=== PATIENT | male | born 1990 | race Caucasian/White ===

== ENCOUNTER 2016-11-20 11:26 | Emergency (ER) | payer BC ==
[2016-11-20] MEDS ORDERED: LORazepam 2 MG/ML INJ IVP ONE (11:32)
[2016-11-20] MEDS ORDERED: LORazepam 2 MG/ML INJ ONE (11:32)
--- NOTE | 2016-11-20 11:34 | EDPHY ---
H & P Time Seen by Provider: 11/20/16 11:32 HPI/ROS: CHIEF COMPLAINT: Possible right shoulder dislocation HISTORY OF PRESENT ILLNESS: 26-year-old male with prior history of right shoulder dislocation x4 arrives via ambulance after he was was bench pressing heavier than usual weight and felt his shoulder dislocate. No direct trauma or fall. PHYSICAL EXAM (Prior to examination, patient consented to physical exam, hands were washed and my usual and customary physical exam procedures followed) 1) GENERAL: Well-developed, well-nourished, alert and oriented. Appears to be in no acute distress. 2) HEAD: Normocephalic 3) HEENT: sclera anicteric 4) LUNGS: Breathing comfortably. 5) SKIN: intact 6) MUSCULOSKELETAL: lateral shoulder step-off with anterior fullness 7) NEUROLOGIC: bilateral deltoid sensation intact. DIFFERENTIAL DIAGNOSIS: in no particular include but not limited to fracture, dislocation, subluxation Constitutional: Initial Vital Signs Temperature (C) 36.9 C 11/20/16 11:35 Heart Rate 79 11/20/16 11:35 Respiratory Rate 18 11/20/16 11:35 Blood Pressure 126/86 H 11/20/16 11:35 O2 Sat (%) 98 11/20/16 11:35 O2 Delivery Mode Room Air Allergies/Adverse Reactions: No Known Allergies Allergy (Unverified 11/20/16 11:37) Home Medications: Medication Instructions Recorded Hydrocodone/APAP 5/325 [[place] 1 tab PO Q6 PRN #5 tab 11/20/16 5/325 (RX)] MDM/Departure - MDM Diagnostics: Pre reduction Xray of the right shoulder interpreted by myself: Dislocation Post reduction xray of the right shoulder interpreted by myself: normal anatomic alignment Procedures: Procedure: Dislocation reduction. . The dislocation of the right shoulder was reduced using modified Santizo technique without complications. Post reduction the patient's neurovascular exam is normal. Post reduction x-ray demonstrates reduction of the joint to the anatomic position. The procedure was performed by myself. Medications Given: Discontinued Medications Lorazepam (Ativan Injection) 1 mg IVP EDNOW ONE Stop: 11/20/16 11:33 Last Admin: 11/20/16 11:36 Dose: 1 mg - Depart Disposition: Home, Routine, Self-Care Clinical Impression: Recurrent dislocation, right shoulder Condition: Good Instructions: Shoulder Dislocation (ED) Additional Instructions: Return to the ER immediately if you experience discoloration, have worsening pain, numbness, tingling, or any other symptoms that concern you. If you received x-rays in the emergency department today, be advised, that ligamentous , tendon, muscular, and other non-bony injury cannot be fully ruled out. Try to keep your affected extremity elevated above the level of your chest, and keep cold packs on the affected area, for the next 48 hours. Prescriptions: Hydrocodone/APAP 5/325 [[place] 5/325 (RX)] 1 tab PO Q6 PRN #5 tab PRN Reason: Pain, Severe Referrals: Rigoberto Virk MD [Medical Doctor] - 2-3 days, call for appt. (Dr. Virk is orthopedic surgeon)
[2016-11-20 11:37] VITALS: TEMP 98.4
[2016-11-20 12:17] VITALS: BP 127/76; PULSE 65; RESP 16; O2SAT 94
== END 2016-11-20 12:16 | disposition home or self-care (01) ==
PROC: 0RSJXZZ Reposition Right Shoulder Joint, External Approach (ICD-10-PCS; principal; 2016-11-20)
DX: M24.411 Recurrent dislocation, right shoulder (principal); X58.XXXA Exposure to other specified factors, initial encounter; Y99.8 Other external cause status; Y93.A1 Activity, exercise machines primarily for cardiorespiratory conditioning
CPT/HCPCS: 96374; J2060